=== PATIENT | male | born 1970 | race Caucasian/White ===

== ENCOUNTER 2019-02-16 20:44 | Emergency (ER) | payer OTHER ==
[2019-02-16 20:49] VITALS: BP 119/77
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
== END 2019-02-16 22:23 | disposition home or self-care (01) ==
DX: S16.1XXA Strain of muscle, fascia and tendon at neck level, initial encounter (principal); S09.90XA Unspecified injury of head, initial encounter; V00.181A Fall from other rolling-type pedestrian conveyance, initial encounter; Y99.9 Unspecified external cause status

== ENCOUNTER 2019-05-05 19:27 | Emergency (ER) | payer OTHER | END 2019-05-05 23:37 | disposition home or self-care (01) ==